=== PATIENT | female | born 1980 | race African-American/Black ===

== ENCOUNTER 2020-04-22 00:16 | Outpatient (CLI) | payer OTHER, SELFPAY ==
[2020-04-22 18:52] LABS: SARS-CoV-2 RNA PCR Negative
== END 2020-04-22 00:17 | disposition home or self-care (01) ==
LOC: ANHCOVIDDT 00:16
PROVIDERS: Anesthesiology; Visit Provider Obstetrics & Gynecology
DX: Z01.812 Encounter for preprocedural laboratory examination (principal); Z11.59 Encounter for screening for other viral diseases
CPT/HCPCS: 87635; C9803; U0003

== ENCOUNTER 2020-04-24 00:36 | Day surgery (SDC) | payer OTHER, SELFPAY ==
[2020-04-09 14:19] VITALS: BMI 17.2
[2020-04-24] MEDS: LACTATED RINGERS 1,000 ML 30 ML IV CONT ×2 (06:33→08:32)
--- NOTE | 2020-04-24 06:33 | P.PNAN_ITS ---
Anes - Initial Pre Proc Eval Procedure: Operation Date: 04/24/20 07:30 Proposed Procedures p Hysteroscopy, Dilation and Curettage - Amparo Acharya MD Date/Time: 04/24/20 06:33 Surgeon: Amparo Acharya MD Pre Op Diagnosis: abn uterine bleeding Patient Data Age: 39 Gender: F Height: 5 ft 11 in Weight: 56 kg Allergies Allergy/AdvReac Type Severity Reaction Status Date / Time No Known Allergies Allergy Verified 04/09/20 14:19 Home Medications Medication Instructions Recorded Confirmed Type cholecalciferol (vitamin D3) 2,000 unit PO DAILY 04/09/20 04/09/20 History [Vitamin D3] pantoprazole 40 mg PO DAILY 04/09/20 04/09/20 History Patient hx anesthesia problems: none Family hx anesthesia problems: none [facility] Past Medical History Medical History (Updated 04/24/20 @ 06:45 by Sanju Vivar MD) GERD (gastroesophageal reflux disease) Social History Social History Smoking status: Never smoker Substance use: never Gender identity (if verbalized by the patient): Female Spiritual care concerns: No Anes - Eval Final PreProcedure Day of Procedure 04/24/20 06:33 Patient weight: thin Heart: regular rate and rhythm Lungs: clear to auscultation Airway: Mallampati scale class 1 Neurological: alert and oriented Last oral intake: >/= 8 hours ASA classification: II Emergent: no Anesthetic plan: proceed Anesthesia type and monitoring: general GIVS and standard monitoring Informed Consent: The patient's anesthetic plan and its attendant risks and benefits were discussed with the patient/family/POA. Questions were solicited and answers provided to the satisfaction of the patient/family/POA.
[2020-04-24] MEDS: ACETAMINOPHEN 500 MG TABLET 1000 MG PO (06:34)
--- NOTE | 2020-04-24 07:28 | WPDHPUPDATE1 ---
History and Physical Update Update Date/Time: 04/24/20 07:28 History and Physical has been reviewed, including an updated exam of the patient. There are NO changes in the patient's condition. Risks, benefits, and alternatives have been discussed and questions answered. Patient agrees to proceed with procedure.
--- NOTE | 2020-04-24 07:32 | PM.IMHP ---
H&P: HPI History of Present Illness Date/Time: 04/24/20 07:32 Chief complaint: abn uterine bleeding Narrative: Keon Fontanez is a 39 year old female [facility] Past Medical History Medical History (Updated 04/24/20 @ 07:34 by Amparo Acharya MD) GERD (gastroesophageal reflux disease) Interstitial cystitis Surgical History Surgical History (Updated 04/24/20 @ 07:35 by Amparo Acharya MD) H/O ovarian cystectomy Previous section Social History Social History Smoking status: Never smoker Substance use: never Gender identity (if verbalized by the patient): Female Spiritual care concerns: No Meds Home Medications and Allergies Home Medications Medication Instructions Recorded Confirmed Type cholecalciferol (vitamin D3) 2,000 unit PO DAILY 04/09/20 04/09/20 History [Vitamin D3] pantoprazole 40 mg PO DAILY 04/09/20 04/09/20 History Allergies Allergy/AdvReac Type Severity Reaction Status Date / Time No Known Allergies Allergy Verified 04/09/20 14:19 Exam Const: General: no acute distress HENMT: Ears: TM's normal bilaterally Eyes: General: appearance normal, both eyes and all related structures Neck: Neck: no JVD Resp: Auscultation: clear to auscultation bilaterally Cardio: Rate: regular rate Rhythm: regular rhythm GI: Inspection: non-distended GI Palp: Yes Soft to palpation and No Tenderness to palpation present (GI) : External Female Exam: normal external appearance Skin: General skin exam: normal color Neuro: General: gait normal Speech: normal speech Extrem: General: normal to inspection Psych: Mental Status: mental status grossly normal Assessment and Plan Additional Plan plan is to move forward with hysteroscopy D&C. May benefit from an IUD ro ablation depending on cavity. Risk/benefits/alternatives discussed. Move forward with hysteroscopy D&C
[2020-04-24] MEDS: KETOROLAC 30 MG/ML VIAL (*BKC) IV PUSH (08:05)
--- NOTE | 2020-04-24 08:10 | SUR.OPER ---
checked out of pyxsis for this pt fentanyl x 1 vial and givent to susan mustafa crna for this pt
--- NOTE | 2020-04-24 08:25 | PM.PROC ---
Procedure Note - Detailed Date of procedure: 04/24/20 Pre-op diagnosis: abn uterine bleeding Post-op diagnosis: same Procedure performed: Hysteroscopy Dilation and currettage with MYOSURE Description of procedure: The patient was given appropriate anesthesia and she was prepared and draped in the dorsal lithotomy in [facility]. A speculum was used to visualize the cervix and then 1% lidocaine was injected for a paracervical block. She was then attempted to be dilated with a small Hegar dilator but this was difficult as it was in the office. So the camera was inserted and with saline distension, we were able to float into the cavity (which was off to the left). Bilateral ostia noted. no intratuerine masses noted. Specimen collected with MYOSURE assistance to ensure no puncture was done. Once adequate specimen collected, the instruments were removed. The single toothed tenaculum site was sutured with 2-0 Chromic for hemostasis with 1 figure of 8 stitch. All instruments were then removed from the vaginala nd the patient was taken to recovery in stable condition Anesthesia: MAC Surgeon: Amparo Acharya MD Estimated blood loss (mL): 15 Drains: No Packing: No Pathology: yes (uterine currettings/shavings) Complications: None Condition: stable Disposition: same day Findings: Normal intrauterine cavity except likely a fibroid pressing from the right displacing the entry to internal os
[2020-04-24 08:35] VITALS: BP 122/79; RESP 14; O2SAT 97
[2020-04-24 09:05] VITALS: BP 130/89; RESP 13
[2020-04-24 09:35] VITALS: BP 112/81; RESP 12
[2020-04-24] MEDS: SCOPOLAMINE 1.5 MG PATCH TRANSDERM (10:02)
[2020-04-24] MEDS: ONDANSETRON HCL ODT 4 MG TABLET PO (10:03)
[2020-04-24 10:05] VITALS: BP 139/94; RESP 14
[2020-04-24 10:12] VITALS: BP 117/78; PULSE 69; RESP 18; TEMP 36.6; O2SAT 100
== END 2020-04-24 10:29 | disposition home or self-care (01) ==
PROVIDERS: Visit Provider Obstetrics & Gynecology
PROC: 0U5B8ZZ Destruction of Endometrium, Via Natural or Artificial Opening Endoscopic (ICD-10-PCS; CPT 58563; principal; 2020-04-24 07:30)
DX: N93.9 Abnormal uterine and vaginal bleeding, unspecified (principal); K21.9 Gastro-esophageal reflux disease without esophagitis
CPT/HCPCS: 58558; 88305; A9270; J1885; J2250; J2704; J3010; J7030; J7120